=== PATIENT | female | born 1945 | race Caucasian/White ===

== ENCOUNTER → 2025-05-26 | Outpatient (CLI) | payer MEDICARE, SELFPAY ==
--- NOTE | 2025-05-26 10:31 | XR_ITS ---
Examination: Thoracic spine 3 views Technique one AP lateral coned lateral upper dorsal spine 3 views Date and time: May 26, 2025 1059 hours INDICATIONS: Upper back pain 7 years. 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
== END | disposition home or self-care (01) ==
PROVIDERS: PCP Family Medicine; Referring Provider Chiropractor; Visit Provider Chiropractor
DX: M40.294 Other kyphosis, thoracic region (principal); G95.29 Other cord compression
CPT/HCPCS: 72070

== ENCOUNTER → 2025-06-30 | Outpatient (CLI) | payer MEDICARE, SELFPAY ==
--- NOTE | 2025-06-30 13:43 | XR_ITS ---
Examination: Bilateral hands, 6 views. Technique: AP, Oblique, Lateral each hand total 6 views Date and time of exam: June 30, 2025 1348 hours INDICATIONS: Bilateral hand swelling and pain beginning 7 months ago. FINDINGS: Prominent osteopenia. Moderate diffuse narrowing joints of the wrist and hand bilaterally Significant osteoarthritis left first carpometacarpal joint and moderate osteoarthritis right first carpometacarpal joint Impression: Moderate diffuse narrowing joints of the wrist and hand Osteoarthritis first carpometacarpal joints
== END | disposition home or self-care (01) ==
LOC: CDIM 13:29
PROVIDERS: PCP Family Medicine; Referring Provider Orthopaedic Surgery; Visit Provider Orthopaedic Surgery
DX: M18.0 Bilateral primary osteoarthritis of first carpometacarpal joints (principal); M25.832 Other specified joint disorders, left wrist; M25.831 Other specified joint disorders, right wrist; M25.842 Other specified joint disorders, left hand; M25.841 Other specified joint disorders, right hand
CPT/HCPCS: 73130

== ENCOUNTER → 2025-08-29 | Outpatient (CLI) | payer MEDICARE, SELFPAY ==
--- NOTE | 2025-08-29 | XR_ITS ---
Examination: Bone densitometry Date and time of exam:August 29, 2025, 1324 hours INDICATIONS: Menopause age 57, steroid inhalers for asthma 20 years, strong family history, sister and mother osteoporosis Technique: Lumbar spine and hip total bone mineralization values of an calculated. Peak reference and age match control results have been displayed. Findings: Lumbar spine total bone mineralization is1.026 gm/cm2. This is 0.2 standard deviations below peak reference. This is 2.4 standard deviations above age-matched controls. Hip total bone mineralization is 0.758 gm/cm2 This is 1.5 standard deviations below peak reference. This is 0.5 standard deviations above age-matched controls Impression: There is normal mineralization based on lumbar spine measurements. There is osteopenia based on hip measurements
== END | disposition home or self-care (01) ==
PROVIDERS: Referring Provider Family Medicine; Visit Provider Family Medicine
DX: Z13.820 Encounter for screening for osteoporosis (principal); M85.88 Other specified disorders of bone density and structure, other site
CPT/HCPCS: 77080

== ENCOUNTER → 2025-11-25 | Outpatient (CLI) | payer MEDICARE, SELFPAY ==
--- NOTE | 2025-11-25 09:13 | XR_ITS ---
EXAMINATION: Thoracic spine 3 views TECHNIQUE: AP lateral: Lateral upper dorsal spine 3 views Date and time: November 25, 2025, 0943 hours INDICATIONS: Upper back pain beginning 3 weeks ago FINDINGS: Severe osteopenia Thoracic dextroscoliosis 14 degrees Chronic wedging T11 T7 No acute thoracic fracture Moderate diffuse thoracic disc narrowing Mild thoracic spondylosis IMPRESSION: Severe osteopenia No acute thoracic fracture Moderate diffuse thoracic degenerative disc disease
--- NOTE | 2025-11-25 09:13 | XR_ITS ---
Examination: Lumbar spine, 5 views Technique: Lumbar spine AP, lateral, coned lateral lower lumbar spine, bilateral obliques 5 views Exam date and time: November 25, 2025, 0938 hours, comparison December 26, 2016 INDICATIONS: Low back pain 3 weeks. FINDINGS: Abundant stool in the colon Severe osteopenia Lumbar levoscoliosis 27 degrees Advanced diffuse facet arthropathy No lumbar fracture Diffuse moderate to advanced lumbar degenerative disc disease Moderate lumbar spondylosis IMPRESSION: Diffuse moderate to advanced lumbar degenerative disc disease with spinal stenosis
== END | disposition home or self-care (01) ==
LOC: CDIM 08:36
PROVIDERS: PCP Family Medicine; Referring Provider Chiropractor; Visit Provider Chiropractor
DX: M51.360 Other intervertebral disc degeneration, lumbar region with discogenic back pain only (principal); M48.061 Spinal stenosis, lumbar region without neurogenic claudication; M85.88 Other specified disorders of bone density and structure, other site; M51.34 Other intervertebral disc degeneration, thoracic region
CPT/HCPCS: 72072; 72110